=== PATIENT | female | born 1980 | race Caucasian/White ===

== ENCOUNTER 2017-05-25 13:44 | Emergency (ER) | payer MEDICAID ==
[~2017-05-25] VITALS: Ht 185.4 cm; Wt 193.5 kg
[~2017-05-25 13:44] MED LIST: FERR325T28 PO; LISI-600 PO; METF500T PO; METO-395 PO; WARF5TAB PO
[2017-05-25 14:05] VITALS: BP 158/111
[2017-05-25] MEDS ORDERED: diphenhydrAMINE 50 mg/ml inj IV ONE (14:50)
[2017-05-25] MEDS ORDERED: proCHLORperazine 10 MG/2 ml inj IM ONE (14:50)
[2017-05-25 15:00] LABS: BASOPHILS % (AUTO) 0.3 % (0-1); EOSINOPHILS # (AUTO) 0.2 X10'3 (0-0.9); HEMATOCRIT 33.3 % (35.0-45.0); HEMOGLOBIN 10.8 g/dl (12.0-16.0); LYMPHOCYTES % (AUTO) 24.3 % (21-51); MEAN CORPUSCULAR HEMOGLOBIN 22.2 PG (27.0-31.0); MEAN CORPUSCULAR HGB CONC 32.3 % (33.0-36.5); MEAN CORPUSCULAR VOLUME 68.7 FL (78-98); MEAN PLATELET VOLUME 9.3 FL (7.4-10.4); MONOCYTES # (AUTO) 0.4 X10'3 (0-0.9); NEUTROPHILS # (AUTO) 5.5 X10'3 (1.8-7.7); NEUTROPHILS % (AUTO) 68.4 % (42-75); PLATELET COUNT 320 X10'3 (140-440); RED BLOOD COUNT 4.85 X10'6 (4.20-5.60); RED CELL DISTRIBUTION WIDTH 16.5 % (11.5-14.5); WHITE BLOOD COUNT 8.1 X10'3 (4.5-11.0)
[2017-05-25 15:10] LABS: INR 2.7 INR; PARTIAL THROMBOPLASTIN TIME 38 SECONDS (22-32); PROTHROMBIN TIME 26.7 SECONDS (9.0-12.0)
[2017-05-25] MEDS ORDERED: diphenhydrAMINE 25mg capsule PO ONE ×2 (15:10→15:25)
[2017-05-25 15:12] LABS: URINE HCG NEGATIVE (NEG)
[2017-05-25 15:14] LABS: ALANINE AMINOTRANSFERASE 34 U/L (12-78); ALBUMIN 3.2 G/DL (3.4-5.0); ALBUMIN/GLOBULIN RATIO 0.9 (1.1-1.5); ALKALINE PHOSPHATASE 60 IU/L (46-116); ANION GAP 9 (8-16); ASPARTATE AMINO TRANSFERASE 24 U/L (10-37); BILIRUBIN,TOTAL 0.4 MG/DL (0.1-1.0); BLOOD UREA NITROGEN 9 MG/DL (7-18); BUN/CREATININE RATIO 13.6 (6.6-38.0); CALCIUM 9.1 MG/DL (8.5-10.1); CHLORIDE 103 MMOL/L (99-107); CREATININE 0.66 MG/DL (0.40-0.90); GLUCOSE 129 MG/DL (70-104); POTASSIUM 3.6 MMOL/L (3.5-5.1); SODIUM 140 MMOL/L (135-145); TOTAL CARBON DIOXIDE 28.4 MMOL/L (24-32); TOTAL PROTEIN 6.8 G/DL (6.4-8.2); eGFR > 90 ML/MIN
[2017-05-25 15:23] LABS: PLATELET ESTIMATE NORMAL
[2017-05-25 15:24] LABS: ANISOCYTOSIS 1+; ELLIPTOCYTES FEW; MICROCYTOSIS 2+; POLYCHROMASIA FEW; TEAR DROP CELLS FEW
[2017-05-25 15:25] LABS: URINE AMPHETAMINE SCREEN NEGATIVE (Neg); URINE BARBITUATE SCREEN NEGATIVE (Neg); URINE BENZODIAZEPINES SCREEN NEGATIVE (Neg); URINE CANNABINOID SCREEN NEGATIVE (Neg); URINE COCAINE SCREEN NEGATIVE (Neg); URINE METHADONE SCREEN NEGATIVE (Neg); URINE OPIATE SCREEN NEGATIVE (Neg); URINE PHENCYCLIDINE SCREEN NEGATIVE (Neg)
[2017-05-25] MEDS ORDERED: diphenhydrAMINE 25 MG/10 ML UD oral solution PO ONE (15:25)
[2017-05-25] MEDS ORDERED: AMOX500C2 PO (17:01)
[2017-05-25] MEDS ORDERED: HYDR-569 PO (17:01)
[2017-05-25] MEDS: CefTRIAXone 1000mg IM Kit (w/lidocaine diluent) IM ONE ×2 (17:16→17:22)
[2017-05-25] MEDS ORDERED: CefTRIAXone 1000mg IM Kit (w/lidocaine diluent) IM ONE (17:25)
== END 2017-05-25 17:45 | disposition home or self-care (01) ==
LOC: ER 13:45
DX: H70.91 Unspecified mastoiditis, right ear (principal); D50.9 Iron deficiency anemia, unspecified; I10 Essential (primary) hypertension; G43.909 Migraine, unspecified, not intractable, without status migrainosus; Z90.49 Acquired absence of other specified parts of digestive tract; Z88.2 Allergy status to sulfonamides; Z88.5 Allergy status to narcotic agent; Z79.84 Long term (current) use of oral hypoglycemic drugs; Z79.899 Other long term (current) drug therapy; Z79.01 Long term (current) use of anticoagulants
CPT/HCPCS: 36415; 70450; 80053; 80305; 81025; 85025; 85610; 85651; 85730; 96372; 99285; J0696; J0780; Q0163

== ENCOUNTER 2018-02-02 04:58 | Emergency (ER) | payer MEDICAID ==
[~2018-02-02] VITALS: Ht 185.4 cm; Wt 190.9 kg
[~2018-02-02 04:58] MED LIST changes: +HYDR-4383 PO
[2018-02-02] MEDS ORDERED: LOSA25TA96 PO (05:11)
[2018-02-02] MEDS ORDERED: CHOL400T PO (05:11)
[2018-02-02] MEDS ORDERED: METFORMIN PO (05:11)
[2018-02-02] MEDS ORDERED: levothyroxine sodium PO (05:11)
[2018-02-02] MEDS ORDERED: HYDR25TA4 PO (05:11)
[2018-02-02] MEDS ORDERED: CARV25TA PO (05:11)
[2018-02-02] MEDS ORDERED: MONT10TA21 PO (05:11)
[2018-02-02] MEDS ORDERED: aspirin 325mg tablet PO ONE (05:35)
[2018-02-02] MEDS ORDERED: proCHLORperazine 10mg tablet PO ONE (05:35)
[2018-02-02] MEDS ORDERED: LORazepam 0.5 MG tablet PO ONE (05:35)
[2018-02-02 06:04] LABS: BASOPHILS % (AUTO) 0.3 % (0-1); EOSINOPHILS # (AUTO) 0.2 X10'3 (0-0.9); EOSINOPHILS % (AUTO) 2.5 % (0-6); HEMATOCRIT 35.1 % (35.0-45.0); HEMOGLOBIN 11.2 g/dl (12.0-16.0); LYMPHOCYTES # (AUTO) 2.4 X10'3 (1.1-4.8); LYMPHOCYTES % (AUTO) 32.3 % (21-51); MEAN CORPUSCULAR HGB CONC 31.9 % (33.0-36.5); MEAN CORPUSCULAR VOLUME 75.1 FL (78-98); MEAN PLATELET VOLUME 10.1 FL (7.4-10.4); MONOCYTES # (AUTO) 0.4 X10'3 (0-0.9); MONOCYTES % (AUTO) 5.2 % (2-12); NEUTROPHILS # (AUTO) 4.4 X10'3 (1.8-7.7); NEUTROPHILS % (AUTO) 59.7 % (42-75); PLATELET COUNT 294 X10'3 (140-440); RED BLOOD COUNT 4.68 X10'6 (4.20-5.60); RED CELL DISTRIBUTION WIDTH 15.1 % (11.5-14.5); WHITE BLOOD COUNT 7.3 X10'3 (4.5-11.0)
[2018-02-02 06:09] LABS: ALANINE AMINOTRANSFERASE 39 U/L (12-78); ALBUMIN 3.3 G/DL (3.4-5.0); ALBUMIN/GLOBULIN RATIO 0.9 (1.1-1.5); ALKALINE PHOSPHATASE 82 IU/L (46-116); ANION GAP 9 (8-16); ASPARTATE AMINO TRANSFERASE 31 U/L (10-37); BILIRUBIN,TOTAL 0.4 MG/DL (0.1-1.0); BLOOD UREA NITROGEN 10 MG/DL (7-18); BUN/CREATININE RATIO 9.9 (6.6-38.0); CALCIUM 9.1 MG/DL (8.5-10.1); CHLORIDE 102 MMOL/L (99-107); CREATININE 1.01 MG/DL (0.40-0.90); GLUCOSE 199 MG/DL (70-104); POTASSIUM 3.8 MMOL/L (3.5-5.1); SODIUM 139 MMOL/L (135-145); TOTAL CARBON DIOXIDE 28.2 MMOL/L (24-32); eGFR 62 ML/MIN
[2018-02-02] MEDS ORDERED: amLODIPine 5mg tablet PO ONE (06:45)
[2018-02-02] MEDS ORDERED: AMLO5TAB4 PO (06:53)
[2018-02-02 08:56] VITALS: BP 171/109
== END 2018-02-02 09:00 | disposition home or self-care (01) ==
LOC: ER 04:59
DX: I10 Essential (primary) hypertension (principal); R60.0 Localized edema; R51 Headache; Z90.49 Acquired absence of other specified parts of digestive tract; Z86.711 Personal history of pulmonary embolism; Z88.5 Allergy status to narcotic agent; Z88.2 Allergy status to sulfonamides; Z88.1 Allergy status to other antibiotic agents
CPT/HCPCS: 36415; 80053; 83880; 84443; 84484; 85025; 93975; 99284; Q0164

== ENCOUNTER 2018-11-11 00:46 | Emergency (ER) | payer MEDICAID, OTHER ==
[~2018-11-11] VITALS: Ht 185.4 cm; Wt 181.4 kg
[~2018-11-11 00:46] MED LIST changes: +AMLO5TAB4 PO; +CARV25TA PO; +CHOL400T PO; -HYDR-4383 PO; +HYDR25TA4 PO; -LISI-600 PO; +LOSA25TA96 PO; -METF500T PO; +METFORMIN PO; -METO-395 PO; +MONT10TA21 PO; -WARF5TAB PO; +levothyroxine sodium PO
[2018-11-11 01:08] VITALS: BP 139/88
[2018-11-11] MEDS ORDERED: naproxen 500mg tablet PO ONE (01:35)
[2018-11-11] MEDS ORDERED: HYDR-4383 PO (02:09)
[2018-11-11] MEDS ORDERED: CYCL-1 PO (02:09)
[2018-11-11] MEDS ORDERED: HYDROcodone/acetaminophen 10/325mg tab PO ONE (02:10)
[2018-11-11] MEDS ORDERED: cyclobenzaprine 10mg tablet PO ONE (02:10)
== END 2018-11-11 02:39 | disposition home or self-care (01) ==
LOC: ER 00:47
DX: S20.211A Contusion of right front wall of thorax, initial encounter (principal); M54.2 Cervicalgia; M54.6 Pain in thoracic spine; G43.909 Migraine, unspecified, not intractable, without status migrainosus; I10 Essential (primary) hypertension; Z88.5 Allergy status to narcotic agent; Z91.040 Latex allergy status; Z88.2 Allergy status to sulfonamides; Z88.6 Allergy status to analgesic agent; Z79.2 Long term (current) use of antibiotics; Z79.899 Other long term (current) drug therapy; Z86.711 Personal history of pulmonary embolism; Z90.49 Acquired absence of other specified parts of digestive tract; Z98.890 Other specified postprocedural states; V49.3XXA Car occupant (driver) (passenger) injured in unspecified nontraffic accident, initial encounter; Y93.89 Activity, other specified; Y92.488 Other paved roadways as the place of occurrence of the external cause; Y99.8 Other external cause status
CPT/HCPCS: 93005; 99284

== ENCOUNTER 2018-11-24 04:29 | Emergency (ER) | payer MEDICAID, OTHER ==
[~2018-11-24] VITALS: Ht 185.4 cm; Wt 149.5 kg
[~2018-11-24 04:29] MED LIST changes: +CYCL-1 PO; +HYDR-4383 PO
[2018-11-24 05:39] LABS: CLARITY,URINE CLOUDY (Clear); COLOR,URINE RED (Yellow); GLUCOSE, URINE >=1000 mg/dl (Neg); KETONES,URINE NEGATIVE (Neg); LEUKOCYTE ESTERASE ,URINE NEGATIVE (Neg); NITRITES, URINE NEGATIVE (Neg); OCCULT BLOOD,URINE LARGE (Neg); PROTEIN,URINE NEGATIVE (Neg); UROBILINOGEN,URINE 0.2 E.U/dL (0.2-1.0)
[2018-11-24 05:40] LABS: BASOPHILS # (AUTO) 0.1 X10'3 (0-0.2); BASOPHILS % (AUTO) 0.7 % (0-1); EOSINOPHILS # (AUTO) 0.1 X10'3 (0-0.9); HEMATOCRIT 40.2 % (35.0-45.0); HEMOGLOBIN 13.1 g/dl (12.0-16.0); LYMPHOCYTES # (AUTO) 3.5 X10'3 (1.1-4.8); LYMPHOCYTES % (AUTO) 34.2 % (21-51); MEAN CORPUSCULAR HEMOGLOBIN 24.7 PG (27.0-31.0); MEAN CORPUSCULAR HGB CONC 32.6 g/dL (33.0-36.5); MEAN CORPUSCULAR VOLUME 75.9 FL (78-98); MEAN PLATELET VOLUME 9.6 FL (7.4-10.4); MONOCYTES # (AUTO) 0.5 X10'3 (0-0.9); MONOCYTES % (AUTO) 5.2 % (2-12); NEUTROPHILS % (AUTO) 58.9 % (42-75); PLATELET COUNT 290 X10'3 (140-440); RED BLOOD COUNT 5.29 X10'6 (4.20-5.60); RED CELL DISTRIBUTION WIDTH 14.4 % (11.5-14.5); WHITE BLOOD COUNT 10.1 X10'3 (4.5-11.0)
[2018-11-24 05:41] LABS: UA COLLECTION TYPE CLN CATCH MIDSTREAM; URINE HCG NEGATIVE (NEG)
[2018-11-24 05:47] LABS: BACTERIA,URINE FEW /HPF (Neg); MUCUS STRANDS NONE SEEN /LPF (Neg); RBC,URINE TNTC /HPF (0-2); SQUAMOUS EPITHELIAL CELL,UR FEW /LPF (FEW); WBC,URINE 0-4 /HPF (0-4)
[2018-11-24 05:57] LABS: ALANINE AMINOTRANSFERASE 34 U/L (12-78); ALBUMIN 3.6 G/DL (3.4-5.0); ALKALINE PHOSPHATASE 79 IU/L (46-116); ANION GAP 9 (8-16); ASPARTATE AMINO TRANSFERASE 17 U/L (10-37); BILIRUBIN,TOTAL 0.5 MG/DL (0.1-1.0); BLOOD UREA NITROGEN 10 MG/DL (7-18); BUN/CREATININE RATIO 11.5 (6.6-38.0); CALCIUM 9.2 MG/DL (8.5-10.1); CHLORIDE 103 MMOL/L (99-107); CREATININE 0.87 MG/DL (0.40-0.90); GLUCOSE 161 MG/DL (70-104); POTASSIUM 3.2 MMOL/L (3.5-5.1); SODIUM 142 MMOL/L (135-145); TOTAL CARBON DIOXIDE 30.1 MMOL/L (24-32); TOTAL PROTEIN 7.3 G/DL (6.4-8.2); eGFR 73 ML/MIN
[2018-11-24] MEDS ORDERED: IBUP-1984 PO (06:30)
[2018-11-24 07:01] VITALS: BP 134/87
== END 2018-11-24 07:03 | disposition home or self-care (01) ==
LOC: ER 04:29
DX: N92.0 Excessive and frequent menstruation with regular cycle (principal); G43.909 Migraine, unspecified, not intractable, without status migrainosus; I10 Essential (primary) hypertension; Z86.718 Personal history of other venous thrombosis and embolism; Z90.49 Acquired absence of other specified parts of digestive tract; Z98.890 Other specified postprocedural states; Z88.5 Allergy status to narcotic agent; Z91.040 Latex allergy status; Z88.2 Allergy status to sulfonamides; Z79.899 Other long term (current) drug therapy
CPT/HCPCS: 36415; 80053; 81001; 81025; 85025; 85610; 99283

== ENCOUNTER 2019-01-18 23:49 | Emergency (ER) | payer MEDICAID ==
[~2019-01-18] VITALS: Ht 185.4 cm; Wt 181.8 kg
--- NOTE | 2019-01-19 01:15 | NUR ---
PLACED TABLE SUGAR ON ANAL REGION PER OMAR LICEA ORDER
[2019-01-19 02:00] VITALS: BP 153/84
[2019-01-19] MEDS ORDERED: HYDR25SU32 RC (02:14)
[2019-01-19] MEDS ORDERED: HYDR30CR79 TOP (02:14)
== END 2019-01-19 02:32 | disposition home or self-care (01) ==
LOC: ER 23:50
DX: K64.4 Residual hemorrhoidal skin tags (principal); G43.909 Migraine, unspecified, not intractable, without status migrainosus; I10 Essential (primary) hypertension; Z86.711 Personal history of pulmonary embolism; Z90.49 Acquired absence of other specified parts of digestive tract; Z98.890 Other specified postprocedural states; Z88.5 Allergy status to narcotic agent; Z88.2 Allergy status to sulfonamides; Z88.8 Allergy status to other drugs, medicaments and biological substances; Z91.040 Latex allergy status; Z79.84 Long term (current) use of oral hypoglycemic drugs; Z79.899 Other long term (current) drug therapy
CPT/HCPCS: 99283

== ENCOUNTER 2019-02-07 23:41 | Emergency (ER) | payer MEDICAID ==
[~2019-02-07] VITALS: Ht 185.4 cm; Wt 181.8 kg
[~2019-02-07 23:41] MED LIST changes: +HYDR25SU32 RC; +HYDR30CR79 TOP
[2019-02-08] MEDS ORDERED: HYDROcodone/acetaminophen 10/325mg tab PO ONE (00:50)
[2019-02-08 01:02] LABS: URINE HCG NEGATIVE (NEG)
[2019-02-08 01:15] LABS: ALANINE AMINOTRANSFERASE 36 U/L (12-78); ALBUMIN 3.6 G/DL (3.4-5.0); ALBUMIN/GLOBULIN RATIO 0.9 (1.1-1.5); ALKALINE PHOSPHATASE 95 IU/L (46-116); ANION GAP 5 (8-16); ASPARTATE AMINO TRANSFERASE 15 U/L (10-37); BASOPHILS % (AUTO) 0.3 % (0-1); BILIRUBIN,TOTAL 0.3 MG/DL (0.1-1.0); BLOOD UREA NITROGEN 13 MG/DL (7-18); BUN/CREATININE RATIO 14.4 (6.6-38.0); CALCIUM 9.2 MG/DL (8.5-10.1); CHLORIDE 104 MMOL/L (99-107); EOSINOPHILS # (AUTO) 0.2 X10'3 (0-0.9); EOSINOPHILS % (AUTO) 2.1 % (0-6); GLUCOSE 183 MG/DL (70-104); HEMATOCRIT 41.6 % (35.0-45.0); HEMOGLOBIN 13.8 g/dl (12.0-16.0); LIPASE 203 U/L (73-393); LYMPHOCYTES # (AUTO) 3.2 X10'3 (1.1-4.8); MEAN CORPUSCULAR HEMOGLOBIN 25.2 PG (27.0-31.0); MEAN CORPUSCULAR VOLUME 76.4 FL (78-98); MEAN PLATELET VOLUME 9.6 FL (7.4-10.4); MONOCYTES # (AUTO) 0.6 X10'3 (0-0.9); MONOCYTES % (AUTO) 5.6 % (2-12); NEUTROPHILS # (AUTO) 6.1 X10'3 (1.8-7.7); PLATELET COUNT 313 X10'3 (140-440); POTASSIUM 3.3 MMOL/L (3.5-5.1); RED BLOOD COUNT 5.45 X10'6 (4.20-5.60); RED CELL DISTRIBUTION WIDTH 14.9 % (11.5-14.5); SODIUM 140 MMOL/L (135-145); TOTAL CARBON DIOXIDE 31.2 MMOL/L (24-32); TOTAL PROTEIN 7.5 G/DL (6.4-8.2); WHITE BLOOD COUNT 10.2 X10'3 (4.5-11.0); eGFR 70 ML/MIN
[2019-02-08 01:47] LABS: CLARITY,URINE CLEAR (Clear); COLOR,URINE YELLOW (Yellow); GLUCOSE, URINE >=1000 mg/dl (Neg); KETONES,URINE NEGATIVE (Neg); LEUKOCYTE ESTERASE ,URINE NEGATIVE (Neg); NITRITES, URINE NEGATIVE (Neg); OCCULT BLOOD,URINE NEGATIVE (Neg); PH,URINE 5.5 (4.8-8.0); PROTEIN,URINE NEGATIVE (Neg); UA COLLECTION TYPE CLN CATCH MIDSTREAM; UROBILINOGEN,URINE 0.2 E.U/dL (0.2-1.0)
[2019-02-08 01:51] LABS: BACTERIA,URINE NONE SEEN /HPF (Neg); MUCUS STRANDS NONE SEEN /LPF (Neg); RBC,URINE NONE SEEN /HPF (0-2); SQUAMOUS EPITHELIAL CELL,UR NONE SEEN /LPF (FEW); WBC,URINE NONE SEEN /HPF (0-4)
[2019-02-08] MEDS ORDERED: HC A30CR2 RC (01:59)
[2019-02-08 02:00] VITALS: BP 148/94
== END 2019-02-08 02:02 | disposition home or self-care (01) ==
LOC: ER 23:42
DX: G89.29 Other chronic pain (principal); R10.9 Unspecified abdominal pain; G43.909 Migraine, unspecified, not intractable, without status migrainosus; E78.00 Pure hypercholesterolemia, unspecified; I10 Essential (primary) hypertension; E03.9 Hypothyroidism, unspecified; F12.90 Cannabis use, unspecified, uncomplicated; Z88.8 Allergy status to other drugs, medicaments and biological substances; Z88.6 Allergy status to analgesic agent; Z91.040 Latex allergy status; Z88.2 Allergy status to sulfonamides; Z79.899 Other long term (current) drug therapy; Z90.49 Acquired absence of other specified parts of digestive tract; Z98.890 Other specified postprocedural states
CPT/HCPCS: 36415; 80053; 81001; 81025; 83690; 85025; 99283

== ENCOUNTER 2019-02-12 06:12 | Emergency (ER) | payer MEDICAID ==
[~2019-02-12] VITALS: Ht 185.4 cm; Wt 181.0 kg
[~2019-02-12 06:12] MED LIST changes: +HC A30CR2 RC
[2019-02-12 07:03] LABS: URINE HCG NEGATIVE (NEG)
[2019-02-12 08:17] VITALS: BP 188/100
[2019-02-12] MEDS ORDERED: HYDR28.33 TP (08:19)
[2019-02-12] MEDS ORDERED: DICY10CA88 PO (08:19)
[2019-02-12] MEDS ORDERED: LIDO30CR23 TOP (08:19)
[2019-02-12] MEDS ORDERED: HYDR25SU32 RC (08:19)
== END 2019-02-12 08:32 | disposition home or self-care (01) ==
LOC: ER 06:13
DX: R10.12 Left upper quadrant pain (principal); K62.89 Other specified diseases of anus and rectum; E78.00 Pure hypercholesterolemia, unspecified; I10 Essential (primary) hypertension; G43.909 Migraine, unspecified, not intractable, without status migrainosus; E03.9 Hypothyroidism, unspecified; F12.90 Cannabis use, unspecified, uncomplicated; Z86.711 Personal history of pulmonary embolism; E66.01 Morbid (severe) obesity due to excess calories; Z68.43 Body mass index [BMI] 50.0-59.9, adult; Z90.49 Acquired absence of other specified parts of digestive tract; Z98.890 Other specified postprocedural states; Z88.5 Allergy status to narcotic agent; Z91.040 Latex allergy status; Z88.2 Allergy status to sulfonamides; Z88.8 Allergy status to other drugs, medicaments and biological substances; Z79.899 Other long term (current) drug therapy
CPT/HCPCS: 74176; 81025; 99284

== ENCOUNTER 2019-02-14 06:36 | Emergency (ER) | payer MEDICAID ==
[~2019-02-14] VITALS: Ht 185.4 cm; Wt 181.0 kg
[~2019-02-14 06:36] MED LIST changes: +DICY10CA88 PO; +HYDR28.33 TP; +LIDO30CR23 TOP
[2019-02-14 06:44] VITALS: BP 145/89
[2019-02-14] MEDS ORDERED: acetaminophen 325mg tablet PO ONE (06:50)
[2019-02-14] MEDS ORDERED: ONDA8TAB6 PO (06:53)
[2019-02-14] MEDS ORDERED: HYDR-3965 PO (06:53)
[2019-02-14] MEDS ORDERED: nitroGLYCERIN 1gm ointment UD TP ONE (06:55)
[2019-02-14] MEDS ORDERED: NITR1OIN TOP (07:34)
--- NOTE | 2019-02-14 07:39 | NUR ---
PT STATES HER PAIN IS MUCH BETTER, 04/30, PT SMILING AND STATES "BEST BRIDGER PRESENT EVER."
== END 2019-02-14 07:42 | disposition home or self-care (01) ==
LOC: ER 06:36
DX: G89.29 Other chronic pain (principal); R10.12 Left upper quadrant pain; K62.89 Other specified diseases of anus and rectum; G43.909 Migraine, unspecified, not intractable, without status migrainosus; E78.00 Pure hypercholesterolemia, unspecified; I10 Essential (primary) hypertension; E03.9 Hypothyroidism, unspecified; F12.90 Cannabis use, unspecified, uncomplicated; Z86.711 Personal history of pulmonary embolism; Z90.49 Acquired absence of other specified parts of digestive tract; Z98.890 Other specified postprocedural states; Z88.5 Allergy status to narcotic agent; Z88.8 Allergy status to other drugs, medicaments and biological substances; Z91.040 Latex allergy status; Z88.2 Allergy status to sulfonamides; Z79.899 Other long term (current) drug therapy
CPT/HCPCS: 99283

== ENCOUNTER 2019-08-28 18:45 | Emergency (ER) | payer MEDICAID ==
[~2019-08-28] VITALS: Ht 185.4 cm; Wt 184.1 kg
[~2019-08-28 18:45] MED LIST changes: +NITR1OIN TOP; +ONDA8TAB6 PO
[2019-08-28 19:11] LABS: BASOPHILS # (AUTO) 0.1 X10'3 (0-0.2); EOSINOPHILS # (AUTO) 0.1 X10'3 (0-0.9); EOSINOPHILS % (AUTO) 1.1 % (0-6); HEMATOCRIT 39.8 % (35.0-45.0); HEMOGLOBIN 13.2 g/dl (12.0-16.0); LYMPHOCYTES # (AUTO) 2.5 X10'3 (1.1-4.8); LYMPHOCYTES % (AUTO) 29.9 % (21-51); MEAN CORPUSCULAR HEMOGLOBIN 26.2 PG (27.0-31.0); MEAN CORPUSCULAR HGB CONC 33.3 g/dL (33.0-36.5); MEAN CORPUSCULAR VOLUME 78.6 FL (78-98); MEAN PLATELET VOLUME 9.1 FL (7.4-10.4); MONOCYTES # (AUTO) 0.4 X10'3 (0-0.9); MONOCYTES % (AUTO) 4.4 % (2-12); NEUTROPHILS # (AUTO) 5.4 X10'3 (1.8-7.7); NEUTROPHILS % (AUTO) 63.6 % (42-75); PLATELET COUNT 263 X10'3 (140-440); RED BLOOD COUNT 5.06 X10'6 (4.20-5.60); RED CELL DISTRIBUTION WIDTH 13.7 % (11.5-14.5); WHITE BLOOD COUNT 8.5 X10'3 (4.5-11.0)
[2019-08-28 19:27] LABS: ALANINE AMINOTRANSFERASE 40 U/L (12-78); ALBUMIN 3.2 G/DL (3.4-5.0); ALBUMIN/GLOBULIN RATIO 0.9 (1.1-1.5); ALKALINE PHOSPHATASE 81 IU/L (46-116); ANION GAP 8 (8-16); ASPARTATE AMINO TRANSFERASE 22 U/L (10-37); BILIRUBIN,TOTAL 0.5 MG/DL (0.1-1.0); BLOOD UREA NITROGEN 11 MG/DL (7-18); BUN/CREATININE RATIO 13.8 (6.6-38.0); CALCIUM 8.9 MG/DL (8.5-10.1); CHLORIDE 105 MMOL/L (99-107); POTASSIUM 3.6 MMOL/L (3.5-5.1); SODIUM 141 MMOL/L (135-145); TOTAL CARBON DIOXIDE 28.5 MMOL/L (24-32); TOTAL PROTEIN 6.8 G/DL (6.4-8.2); eGFR 80 ML/MIN
[2019-08-28 19:29] LABS: GLUCOSE 215 MG/DL (70-104)
[2019-08-28 20:32] LABS: D-DIMER 0.28 MG/L FEU (0-0.50)
[2019-08-28] MEDS ORDERED: cloNIDine 0.1 mg tablet PO SCH (21:45)
--- NOTE | 2019-08-28 21:56 | NUR ---
Pt. refused ordered medication and left without signing discharg paperwork
[2019-08-28 21:58] VITALS: BP 187/119
== END 2019-08-28 21:57 | disposition home or self-care (01) ==
LOC: ER 18:46
DX: I10 Essential (primary) hypertension (principal); R06.02 Shortness of breath; R00.2 Palpitations; G43.909 Migraine, unspecified, not intractable, without status migrainosus; E78.00 Pure hypercholesterolemia, unspecified; F12.90 Cannabis use, unspecified, uncomplicated; E03.9 Hypothyroidism, unspecified; Z86.711 Personal history of pulmonary embolism; Z90.49 Acquired absence of other specified parts of digestive tract; Z98.890 Other specified postprocedural states; Z88.5 Allergy status to narcotic agent; Z88.1 Allergy status to other antibiotic agents; Z88.8 Allergy status to other drugs, medicaments and biological substances; Z91.040 Latex allergy status; Z79.899 Other long term (current) drug therapy
CPT/HCPCS: 36415; 71045; 80053; 84443; 84484; 85025; 85379; 93005; 99285

== ENCOUNTER 2020-07-09 22:06 | Emergency (ER) | payer MEDICAID ==
[~2020-07-09] VITALS: Ht 185.4 cm; Wt 188.6 kg
[~2020-07-09 22:06] MED LIST changes: +LIDO30CR TOP; -LIDO30CR23 TOP
[2020-07-09 22:10] VITALS: BP 186/106
[2020-07-10] MEDS ORDERED: ONDA4TAB6 PO (00:58)
[2020-07-10] MEDS ORDERED: HYDR-3964 PO (00:58)
[2020-07-10] MEDS ORDERED: GABA-534 PO (00:58)
[2020-07-10] MEDS ORDERED: HYDROcodone/acetaminophen 5mg/325mg tablet PO ONE (01:00)
[2020-07-10] MEDS ORDERED: gabapentin 300mg capsule PO ONE (01:00)
[2020-07-10] MEDS ORDERED: ondansetron 4mg rapidly disintigrating tab PO ONE (01:00)
== END 2020-07-10 01:08 | disposition home or self-care (01) ==
LOC: ER 22:06
DX: H66.91 Otitis media, unspecified, right ear (principal); H92.01 Otalgia, right ear; G43.909 Migraine, unspecified, not intractable, without status migrainosus; E78.00 Pure hypercholesterolemia, unspecified; I10 Essential (primary) hypertension; E03.9 Hypothyroidism, unspecified; F12.90 Cannabis use, unspecified, uncomplicated; Z86.711 Personal history of pulmonary embolism; Z90.49 Acquired absence of other specified parts of digestive tract; Z98.890 Other specified postprocedural states; Z91.040 Latex allergy status; Z88.1 Allergy status to other antibiotic agents; Z88.5 Allergy status to narcotic agent; Z88.8 Allergy status to other drugs, medicaments and biological substances; Z79.899 Other long term (current) drug therapy
CPT/HCPCS: 99284

== ENCOUNTER 2022-08-23 20:08 | Emergency (ER) | payer BC, MEDICAID, OTHER ==
[~2022-08-23] VITALS: Ht 185.4 cm; Wt 175.4 kg
[~2022-08-23 20:08] MED LIST changes: +GABA-534 PO; +MONT-47 PO; -MONT10TA21 PO; +ONDA4TAB6 PO
[2022-08-23 20:32] VITALS: BP 134/94
[2022-08-23 21:42] LABS: BASOPHILS # (AUTO) 0.1 X10'3 (0-0.2); BASOPHILS % (AUTO) 1.1 % (0-1); EOSINOPHILS % (AUTO) 0.4 % (0-6); HEMATOCRIT 45.1 % (35.0-45.0); HEMOGLOBIN 14.7 g/dl (12.0-16.0); LYMPHOCYTES # (AUTO) 2.9 X10'3 (1.1-4.8); LYMPHOCYTES % (AUTO) 22.2 % (21-51); MEAN CORPUSCULAR HEMOGLOBIN 25.3 PG (27.0-31.0); MEAN CORPUSCULAR HGB CONC 32.6 g/dL (33.0-36.5); MEAN CORPUSCULAR VOLUME 77.6 FL (78-98); MEAN PLATELET VOLUME 9.6 FL (7.4-10.4); MONOCYTES # (AUTO) 0.7 X10'3 (0-0.9); MONOCYTES % (AUTO) 5.5 % (2-12); NEUTROPHILS # (AUTO) 9.1 X10'3 (1.8-7.7); NEUTROPHILS % (AUTO) 70.8 % (42-75); PLATELET COUNT 292 X10'3 (140-440); RED BLOOD COUNT 5.81 X10'6 (4.20-5.60); RED CELL DISTRIBUTION WIDTH 13.7 % (11.5-14.5); WHITE BLOOD COUNT 12.9 X10'3 (4.5-11.0)
[2022-08-23 21:57] LABS: ALBUMIN 3.9 G/DL (3.4-5.0); ALKALINE PHOSPHATASE 66 IU/L (46-116); ANION GAP 13 (8-16); ASPARTATE AMINO TRANSFERASE 21 U/L (10-37); BILIRUBIN,TOTAL 0.3 MG/DL (0.1-1.0); BLOOD UREA NITROGEN 14 MG/DL (7-18); BUN/CREATININE RATIO 14.7 (10.0-20.0); CALCIUM 9.7 MG/DL (8.5-10.1); CHLORIDE 102 MMOL/L (99-107); CREATININE 0.95 MG/DL (0.40-0.90); GLUCOSE 149 MG/DL (70-104); POTASSIUM 3.5 MMOL/L (3.5-5.1); SODIUM 139 MMOL/L (135-145); TOTAL CARBON DIOXIDE 24.5 MMOL/L (24-32); TOTAL PROTEIN 7.7 G/DL (6.4-8.2); eGFR 65 ML/MIN
[2022-08-23 22:11] LABS: ALANINE AMINOTRANSFERASE 31 U/L (12-78)
[2022-08-23] MEDS ORDERED: ibuprofen tablet 400 MG TABLET PO ONE (23:35)
[2022-08-23] MEDS ORDERED: acetaminophen 325mg tablet PO ONE (23:35)
== END 2022-08-23 23:49 | disposition home or self-care (01) ==
LOC: ER 20:10
DX: M25.512 Pain in left shoulder (principal); R00.2 Palpitations; I10 Essential (primary) hypertension; E78.00 Pure hypercholesterolemia, unspecified; E03.9 Hypothyroidism, unspecified; Z90.49 Acquired absence of other specified parts of digestive tract; F12.10 Cannabis abuse, uncomplicated; Z88.8 Allergy status to other drugs, medicaments and biological substances; Z88.5 Allergy status to narcotic agent; Z91.040 Latex allergy status
CPT/HCPCS: 36415; 71045; 80053; 82948; 83880; 84484; 85025; 93005; 99285

== ENCOUNTER 2023-12-16 10:42 | Outpatient (CLI) | payer OTHER ==
[~2023-12-16 10:42] MED LIST changes: -GABA-534 PO; +GABA-535 PO; +LOSA-415 PO; -LOSA25TA96 PO
== END 2023-12-16 23:59 | disposition home or self-care (01) ==
LOC: RAD 10:42
PROVIDERS: ATTEND Student in an Organized Health Care Education/Training Program
DX: M79.644 Pain in right finger(s) (principal)
CPT/HCPCS: 73200

== ENCOUNTER 2024-05-17 15:46 | Emergency (ER) | payer OTHER ==
[~2024-05-17] VITALS: Ht 185.4 cm; Wt 175.6 kg
[2024-05-17 16:00] VITALS: BP 173/94; PULSE 74; O2SAT 96
[2024-05-17] MEDS ORDERED: ketorolac trometh 15mg/ml vial 15 MG/ML ML IM ONE (17:15)
[2024-05-17] MEDS ORDERED: METH-798 PO (17:21)
[2024-05-17] MEDS ORDERED: HYDR-3965 PO (17:21)
[2024-05-17] MEDS ORDERED: IBUP-862 PO (17:21)
[2024-05-17 17:43] VITALS: RESP 16
[2024-05-17] MEDS: ketorolac trometh 30MG/ML vial 30 MG/ML VIAL IM ONE (17:43)
[2024-05-17 17:55] VITALS: TEMP 97.1
== END 2024-05-17 17:57 | disposition home or self-care (01) ==
LOC: ER 15:47
DX: S83.8X1A Sprain of other specified parts of right knee, initial encounter (principal); S63.591A Other specified sprain of right wrist, initial encounter; S43.491A Other sprain of right shoulder joint, initial encounter; I10 Essential (primary) hypertension; E78.00 Pure hypercholesterolemia, unspecified; E03.9 Hypothyroidism, unspecified; F12.90 Cannabis use, unspecified, uncomplicated; G43.909 Migraine, unspecified, not intractable, without status migrainosus; Z86.711 Personal history of pulmonary embolism; Z88.2 Allergy status to sulfonamides; Z88.5 Allergy status to narcotic agent; Z88.8 Allergy status to other drugs, medicaments and biological substances; Z90.49 Acquired absence of other specified parts of digestive tract; Z91.040 Latex allergy status; Z79.899 Other long term (current) drug therapy; V89.2XXA Person injured in unspecified motor-vehicle accident, traffic, initial encounter; Y93.89 Activity, other specified; Y92.89 Other specified places as the place of occurrence of the external cause; Y99.8 Other external cause status
CPT/HCPCS: 96372; 99283; J1885